=== PATIENT | male | born 1995 | race Caucasian/White ===

== ENCOUNTER 2019-10-21 23:11 | Emergency (ER) | payer OTHER ==
[~2019-10-21] VITALS: Ht 162.6 cm; Wt 59.0 kg
--- NOTE | 2019-10-21 23:39 | PHYS DOC ---
Adult General Chief Complaint Chief Complaint: KNEE INJURY.. ".. I was out at [employer] [place].. and was trying to avoid a snow boarder.. and I crashed... and messed up my Lt knee.. It still really hurts to walk on it.. 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 knee. Patient is able to do straight leg lift. Distal neurovascular intact. Has obvious edema and pain on palpation patella and left collateral ligament. Increased pain with flexion. Cruciates appear relatively stable.. Patient denies other injury. Patient normally healthy. Up-to-date with vaccinations. No recent travel outside the [place]. Review of Systems Review of Systems Constitutional: Denies fever or chills [] Eyes: Denies change in visual acuity, redness, or eye pain [] HENT: Denies nasal congestion or sore throat [] Respiratory: Denies cough or shortness of breath [] Cardiovascular: No additional information not addressed in HPI [] GI: Denies abdominal pain, nausea, vomiting, bloody stools or diarrhea [] : Denies dysuria or hematuria [] Musculoskeletal: Complains of left knee injury Integument: Denies rash or skin lesions [] Neurologic: Denies headache, focal weakness or sensory changes [] Endocrine: Denies polyuria or polydipsia [] All other systems were reviewed and found to be within normal limits, except as documented in this note. Family History Family History Noncontributory Current Medications Current Medications See nursing for home meds Allergies Allergies Allergies Coded Allergies Type Severity Reaction Last Updated Verified amoxicillin Allergy Intermediate Rash 10/21/19 Yes Physical Exam Physical Exam Constitutional: Well developed, well nourished, moderate acute distress, non- toxic appearance. [] HENT: Normocephalic, atraumatic, bilateral external ears normal, oropharynx marylou st, no oral exudates, nose normal. [] Eyes: PERRLA, EOMI, conjunctiva normal, no discharge. [] Neck: Normal range of motion, no tenderness, supple, no stridor. [] Cardiovascular:Heart rate regular rhythm, no murmur [] Lungs & Thorax: Bilateral breath sounds clear to auscultation [] Abdomen: Bowel sounds normal, soft, no tenderness, no masses, no pulsatile masses. [] Skin: Warm, dry, no erythema, no rash. [] Back: No tenderness, no CVA tenderness. [] Extremities: No tenderness, no cyanosis, no clubbing, ROM intact, no edema. [] Except findings in left knee as per history of present illness Neurologic: Alert and oriented X 3, normal motor function, normal sensory function, no focal deficits noted. [] Psychologic: Affect anxious, judgement normal, mood normal. [] EKG EKG [] Radiology/Procedures Radiology/Procedures [][address] [address] IMAGING REPORT Signed PATIENT: CARMINA REYES ACCOUNT: [id number] : 1995 LOCATION: ER AGE: 24 SEX: M EXAM STATUS: PRE ER ORD. PHYSICIAN: JAILENE CURTIS MD REASON: [place] PROCEDURE: KNEE LEFT 4V Left knee x-rays 4 views HISTORY: Injury snow skiing. FINDINGS: No fracture, dislocation or arthritic change. The soft tissues are unremarkable. IMPRESSION: Normal exam. Electronically signed by: Ashok Vyas MD (10/22/2019 12:05 AM) [facility] DICTATED AND SIGNED BY: ASHOK VYAS MD DATE: 10/22/19 0005 CC: JAILENE CURTIS MD ~ Course & Med Decision Making Course & Med Decision Making Pertinent Labs and Imaging studies reviewed. (See chart for details) Ice, elevation, rest, splint, crutches, and take Tylenol and ibuprofen for pain. For marked pain may take Vicoprofen 4 times a day. Follow-up with primary care. Return of any concerns. 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 Receive crutch instruction nurse. Impression- 1. Left knee injury- sprain strain [] Dragon Disclaimer Dragon Disclaimer This electronic medical record was generated, in whole or in part, using a voice recognition dictation system. Departure Departure: Disposition: 01 HOME/RESIDENCE PRIOR TO ADM Condition: STABLE Scripts Ibuprofen (IBUPROFEN) 800 Mg Tablet 800 MG PO TID PRN PRN for PAIN, #120 TAB Prov: JAILENE CURTIS MD 10/21/19 Acetaminophen (ACETAMINOPHEN) 500 Mg Tablet 1000 MG PO QIDPRN PRN for PAIN, #120 TAB Prov: JAILENE CURTIS MD 10/21/19 Hydrocodone/Ibuprofen (HYDROCODONE-IBUPROFEN 7.5-200 ) 1 Each Tablet 1 TAB PO PRN Q6HRS PRN for PAIN, #30 TAB 0 Refills Prov: JAILENE CURTIS MD 10/21/19 Dragon Disclaimer This chart was dictated in whole or in part using Voice Recognition software in a busy, high-work load, and often noisy Emergency Department environment. It may contain unintended and wholly unrecognized errors or omissions. Dragon Disclaimer This chart was dictated in whole or in part using Voice Recognition software in a busy, high-work load, and often noisy Emergency Department environment. It may contain unintended and wholly unrecognized errors or omissions. JAILENE CURTIS MD Oct 21, 2019 23:39
[2019-10-21] MEDS ORDERED: ACET500T68 PO (23:56)
[2019-10-21] MEDS ORDERED: IBUP800T19 PO (23:56)
[2019-10-21] MEDS ORDERED: HYDR-1179 PO (23:56)
--- NOTE | 2019-10-22 00:08 | RAD ---
Left knee x-rays 4 views HISTORY: Injury snow skiing. FINDINGS: No fracture, dislocation or arthritic change. The soft tissues are unremarkable. IMPRESSION: Normal exam. Electronically signed by: Curtis Vyas MD (10/22/2019 12:05 AM) [facility]
[2019-10-22] MEDS ORDERED: HYDROcodon/IBUPROFEN 7.5/200MG 1 TAB TABLET PO ONE (00:15)
[2019-10-22 01:03] VITALS: BP 128/68
== END 2019-10-22 00:25 | disposition home or self-care (01) ==
LOC: ER 23:11
DX: S83.92XA Sprain of unspecified site of left knee, initial encounter (principal); Z88.1 Allergy status to other antibiotic agents; X50.1XXA Overexertion from prolonged static or awkward postures, initial encounter; Y93.23 Activity, snow (alpine) (downhill) skiing, snowboarding, sledding, tobogganing and snow tubing; Y92.89 Other specified places as the place of occurrence of the external cause; Y99.8 Other external cause status
CPT/HCPCS: 73564; 99284